=== PATIENT | male | born 1960 | race Caucasian/White ===

== ENCOUNTER 2016-11-11 12:22 | Emergency (ER) | payer SELFPAY ==
[2016-11-11] MEDS ORDERED: LIDOCAINE 2% ONE ×2 (12:59→14:12)
[2016-11-11] MEDS ORDERED: LIDOCAINE/EPI 1% MDV 20 ML ONE (13:08)
[2016-11-11] MEDS ORDERED: MULTIVITS ADULT INJ 10 ML, THIAMINE 100 MG, FOLIC ACID INJ 1 MG in SODIUM CHLORIDE 0.9%... IV ONE ×3 (13:20)
[2016-11-11] MEDS ORDERED: SODIUM CHLORIDE 0.9% 1,000 ML ONE (13:20)
== END 2016-11-11 15:22 | disposition home or self-care (01) ==
LOC: ER 12:22
CPT/HCPCS: 36415; 70450; 80053; 82553; 82947; 84484; 85025; 85610; 85730; 93005; 96361; 96365